=== PATIENT | male | born 1980 | race Caucasian/White ===

== ENCOUNTER → 2025-01-15 | Outpatient (CLI) | payer OTHER, SELFPAY ==
--- NOTE | 2025-01-15 12:24 | NEURO ---
NCS and/or EMG Patient Report Ordering Doctor: Tanya Mason DATE OF SERVICE: 01/15/25 Ross presents with complaints of numbness and tingling in both hands. Electrodiagnostic findings: Right median motor nerve demonstrates prolonged latency with normal amplitude and conduction velocity. Left median motor nerve demonstrates normal distal latency and amplitude with reduced conduction velocity. Ulnar motor responses within normal limits bilaterally. Prolonged median sensory latency at the wrist bilaterally. Needle EMG testing was performed upper limbs. All muscles tested showed no evidence of denervation with normal motor unit action potentials Electrodiagnostic impression: This is an abnormal study in the upper limbs. 1. Electrodiagnostic findings suggestive of bilateral median mononeuropathy. This is consistent with a mild bilateral carpal tunnel syndrome. 2. There is no electrodiagnostic evidence for ulnar neuropathy, including cubital tunnel syndrome. 3. No electrodiagnostic evidence is noted for cervical radiculopathy. Multi Select Codes Neurology Neurology Interp Codes: 05047-45 Musc test done w/n test comp (interp) (2) and 07160-42 Nrv cndj test 9-10 studies (interp)
== END | disposition home or self-care (01) ==
PROVIDERS: PCP Family Medicine; Referring Provider Physician Assistant; Visit Provider Physician Assistant
DX: R20.2 Paresthesia of skin (principal)
CPT/HCPCS: 95886; 95911